=== PATIENT | female | born 1995 | race Caucasian/White ===

== ENCOUNTER 2017-06-09 07:10 | Inpatient (IN) | payer OTHER ==
[~2017-06-09 07:10] MED LIST: Dexamethasone 4 MG/ML 5 ML MDV IVPUSH ONE; Ketorolac 30 MG/ML SDV IVPUSH ONE; Lactated Ringers 1,000 ML IV ONE; Midazolam 1 MG/ML 2 ML SDV IV ONE; Morphine PF 10 MG/10 ML SDV IV ONE; Ondansetron 4 MG/2 ML SDV IVPUSH ONE; Oxytocin 10 Units/1 ML SDV IV ONE; Propofol 200 MG/20 ML SDV IV ONE; ceFAZolin 1 GM Vial IV ONE; diphenhydrAMINE 50 MG/ML SDV IV ONE; fentaNYL 100 MCG/2 ML SDV IV ONE
[2017-06-09] MEDS: Lactated Ringers 1,000 ML IV SCH ×2 (08:05→19:59)
--- NOTE | 2017-06-09 08:27 | PCM.SN ---
- Free Text/Narrative Note: Subjective-this is a 21-year-old 40+ weeks here for induction. Group B negative. Ultrasound done 2 weeks ago shows vertex. Objective- heart tones are reactive with a heart rate of 154. Cervix-3/80%/-2 Assessment-postdates here for induction group B negative. [id number] fluids. Anticipate vaginal delivery.
[2017-06-09] MEDS ORDERED: Oxytocin/Normal Saline 10 UNIT/1,000 ML BAG IV SCH (11:45)
--- NOTE | 2017-06-09 12:34 | PCM.SN ---
- Free Text/Narrative Note: Subjective-Patient feeling contractions. Pitocin was delayed secondary to staffing issues with another delivery. Objective- heart tones are reactive. Cervix is 4/80/-2 Assessment is induction postdates group B negative Plan-Pitocin. Patient was intrathecal or epidural that'll be fine. Vaginal delivery anticipated.
[2017-06-09] MEDS: Acetaminophen 325 MG Tab PO PRN (16:01)
--- NOTE | 2017-06-09 17:16 | PCM.SN ---
- Free Text/Narrative Note: Subjective-patient yolanda and feeling the contractions. She is more comfortable. Objective- heart tones reactive. Cervix-5/90/+1 Assessment induction primipara group B negative Plan vaginal delivery
[2017-06-09] MEDS ORDERED: Calcium Carbonate 750 MG Tab.Chew PO PRN (17:55)
[2017-06-09] MEDS ORDERED: fentaNYL 100 MCG/2 ML SDV EPIDUR ONE (18:13)
[2017-06-09] MEDS ORDERED: fentaNYL 300 MCG in Ropivacaine 200 ML EPIDUR ONE (18:13)
[2017-06-09] MEDS ORDERED: ePHEDrine 50 MG/ML SDV IVPUSH ONE (18:15)
[2017-06-09] MEDS ORDERED: Naloxone 0.4 MG/ML SDV IVPUSH PRN ×3 (18:19→20:33)
[2017-06-09] MEDS ORDERED: Nalbuphine 10 MG/1 ML Vial IVPUSH ONE (19:49)
[2017-06-09] MEDS ORDERED: diphenhydrAMINE 50 MG/ML SDV IVPUSH PRN (20:33)
[2017-06-09] MEDS ORDERED: ePHEDrine 50 MG/ML SDV IVPUSH PRN (20:33)
[2017-06-09] MEDS ORDERED: Promethazine 25 MG/ML SDV IV PRN (20:33)
[2017-06-09] MEDS ORDERED: Naloxone 0.4 MG in Sodium Chloride 0.9% 100 ML IV PRN (20:33)
[2017-06-09] MEDS ORDERED: hydrOXYzine HCl 50 MG/ML SDV IM PRN ×2 (20:33)
[2017-06-09] MEDS ORDERED: Ondansetron 4 MG/2 ML SDV IVPUSH PRN (20:37)
[2017-06-10] MEDS ORDERED: Citric Acid/Sodium Citrate Solution 30 ML Cup PO ONE (00:47)
--- NOTE | 2017-06-10 01:23 | PCM.HP ---
H&P History of Present Illness - General Date of Service: 06/10/17 Admit Problem/Dx: Admission Diagnosis/Problem Admission Diagnosis/Problem Source of Information: Patient, Old Records History Limitations: Reports: No Limitations - History of Present Illness Initial Comments - Free Text/Narative: 21 yo admitted for induction of labor by Dr Tello. She is 40w2d today. Induction by Pit was attempted,but she has not progressed past 6 cm dilatation and any attempt to increase pitocin has resulted in a non reassuring heart rate. 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: Musculoskeletal History: Reports: Other (See Below) Neurological History: Reports: Migraines Psychiatric History: Reports: Anxiety Endocrine/Metabolic History: Reports: None Hematologic History: Reports: None Immunologic History: Reports: None Oncologic (Cancer) History: Reports: None Dermatologic History: Reports: None - Infectious Disease History Infectious Disease History: Reports: None - Past Surgical History Head Surgeries/Procedures: Reports: None Musculoskeletal Surgical History: Reports: Arthroscopic Knee Other Musculoskeletal Surgeries/Procedures:: left knee scoped x 2 Oncologic Surgical History: Reports: None Social & Family History - Family History Family Medical History: Noncontributory - Tobacco Use Smoking Status *Q: Never Smoker Second Hand Smoke Exposure: No - Caffeine Use Caffeine Use: Reports: None - Recreational Drug Use Recreational Drug Use: No H&P Review of Systems - Review of Systems: Review Of Systems: ROS reveals no pertinent complaints other than HPI. Exam - Exam Exam: See Below - Vital Signs Vital Signs: Last Vital Signs Temp 98.2 F 06/09/17 21:45 Pulse 77 06/09/17 23:30 Resp 18 06/09/17 20:00 BP 119/60 06/09/17 23:30 Pulse Ox 100 06/09/17 12:00 Weight: 110.223 kg - Exam General: Alert, Oriented, 4 HEENT: PERRLA, Hearing Intact, Mucosa Moist & Heeia, Nares Patent, Normal Nasal Septum, Posterior Pharynx Clear, Conjunctiva Clear, EOMI, EACs Clear, TMs Clear Neck: Supple, Trachea Midline, 2 Lungs: Clear to Auscultation, Normal Respiratory Effort Cardiovascular: Regular Rate, Regular Rhythm GI/Abdominal Exam: Normal Bowel Sounds, Soft, Non-Tender, No Organomegaly, No Distention, No Abnormal Bruit, No Mass, Pelvis Stable (Female) Exam: Normal External Exam, Normal Speculum Exam, Normal Bimanual Exam Rectal (Female) Exam: Normal Exam, Normal Rectal Tone Back Exam: Normal Inspection, Full Range of Motion, NT Extremities: Normal Inspection, Normal Range of Motion, Non-Tender, No Pedal Edema, Normal Capillary Refill Skin: Warm, Dry, Intact Neurological: Cranial Nerves Intact, Reflexes Equal Bilateral Neuro Extensive - Mental Status: Alert, Oriented x3, Normal Mood/Affect, Normal Cognition Neuro Extensive - Motor, Sensory, Reflexes: CN II-XII Intact, Normal Gait, Normal Reflexes Psychiatric: Alert, Normal Affect, Normal Mood *Q Meaningful Use (ADM) - VTE *Q VTE Criteria *Q: - Stroke *Q Stroke Criteria *Q: - AMI *Q AMI Criteria *Q: - Problem List (1) Failed induction of labor SNOMED Code(s): 90198982 ICD Code: O61.9 - FAILED INDUCTION OF LABOR, UNSPECIFIED Status: Acute Current Visit: Yes Qualifiers: Failed induction of labor type: medical Qualified Code(s): O61.0 - Failed medical induction of labor (2) Failure to progress in first stage of labor SNOMED Code(s): 395471156 ICD Code: [id number] - Status: Acute Current Visit: Yes (3) Non-reassuring cardiotocographic tracing SNOMED Code(s): 036119630 ICD Code: O76 - ABNLT IN HEART RATE AND RHYTHM COMP LABOR AND DELIVERY Status: Acute Current Visit: Yes Problem List Initiated/Reviewed/Updated: Yes Orders Last 24hrs: Active Orders 24 hr Category Date Time Status Admission Status [Patient Status] [ADT] Routine ADT 06/09/17 07:00 Active Admission Status [Patient Status] [ADT] Routine ADT 06/09/17 08:20 Active Communication Order [RC] ASDIRECTED Care 06/09/17 11:33 Active Communication Order [RC] ASDIRECTED Care 06/09/17 11:33 Active Communication Order [RC] ASDIRECTED Care 06/09/17 11:33 Active Communication Order [RC] ASDIRECTED Care 06/09/17 11:33 Active Notify Provider [RC] PRN Care 06/09/17 11:33 Active Notify Provider [RC] STAT Care 06/09/17 11:33 Active Urinary Catheter Assessment [RC] ASDIRECTED Care 06/09/17 23:04 Active Urinary Catheter Insertion [Insert Urinary Catheter] [ Care 06/09/17 23:15 Ordered OM.PC] Q24H Vital Signs [RC] PER UNIT ROUTINE Care 06/09/17 11:33 Active CBC WITH AUTO DIFF [HEME] Routine Lab 06/10/17 00:58 Received TYPE AND SCREEN [BBK] Routine Lab 06/10/17 00:58 Received Acetaminophen [Tylenol] Med 06/09/17 15:36 Active 650 mg PO Q4H PRN Calcium Carbonate [Tums Extra Strength] Med 06/09/17 17:55 Active 750 mg PO Q2H PRN Lactated Ringers [Ringers, Lactated] 1,000 ml Med 06/09/17 08:00 Active IV ASDIRECTED Naloxone [Narcan] Med 06/09/17 20:33 Active 0.1 mg IVPUSH ASDIRECTED PRN Naloxone [Narcan] Med 06/09/17 18:21 Active 0.1 mg IVPUSH ONETIME PRN Naloxone [Narcan] 0.4 mg Med 06/09/17 20:33 Active Sodium Chloride 0.9% [Normal Saline] 100 ml IV ASDIRECTED Ondansetron [Zofran] Med 06/09/17 20:37 Active 4 mg IVPUSH Q6H PRN Oxytocin/Normal Saline [Pitocin in NS 10 UNITS/1,000 ML Med 06/09/17 11:45 Active ] 10 unit in 1,000 ml IV TITRATE Promethazine [Phenergan] Med 06/09/17 20:33 Active 6.25 - 12.5 mg IV Q4H PRN Scopolamine [Transderm-Scop] Med 06/10/17 01:18 Once 1.5 mg TOP ONETIME ONE diphenhydrAMINE [Benadryl] Med 06/09/17 20:33 Active 25 mg IVPUSH ASDIRECTED PRN ePHEDrine [ePHEDrine Sulfate] Med 06/09/17 20:33 Active 5 mg IVPUSH ASDIRECTED PRN hydrOXYzine HCl [Vistaril] Med 06/09/17 20:33 Active 0 mg IM Q4H PRN hydrOXYzine HCl [Vistaril] Med 06/09/17 20:33 Active 25 - 50 mg IM Q6H PRN Code Status [Resuscitation Status] Routine Resus Stat 06/09/17 16:49 Ordered Medication Orders Acetaminophen (Tylenol) 650 mg PO Q4H PRN PRN Reason: Headache Last Admin: 06/09/17 16:01 Dose: 650 mg Calcium Carbonate/Glycine (Tums Extra Strength) 750 mg PO Q2H PRN PRN Reason: Indigestion Diphenhydramine HCl (Benadryl) 25 mg IVPUSH ASDIRECTED PRN PRN Reason: PRURITUS Ephedrine Sulfate (Ephedrine Sulfate) 5 mg IVPUSH ASDIRECTED PRN PRN Reason: HYPOTENSION Hydroxyzine HCl (Vistaril) 25 - 50 mg IM Q6H PRN PRN Reason: PRURITIS Hydroxyzine HCl (Vistaril) 0 mg IM Q4H PRN PRN Reason: N/V Lactated Ringer's (Ringers, Lactated) 1,000 mls @ 125 mls/hr IV ASDIRECTED SANTINO Last Admin: 06/09/17 19:59 Dose: 125 mls/hr Infusion: 06/09/17 16:05 Dose: 125 mls/hr Admin: 06/09/17 08:05 Dose: 125 mls/hr Oxytocin/Sodium Chloride (Pitocin In Ns 10 Units/1,000 Ml) 10 unit in 1,000 mls @ 12 mls/hr IV TITRATE SANTINO; 2 MUNITS/MIN PRN Reason: Protocol Last Titration: 06/10/17 00:03 Dose: 0 munits/min, 0 mls/hr Titration: 06/09/17 23:45 Dose: 5 munits/min, 30 mls/hr Titration: 06/09/17 23:02 Dose: 12 munits/min, 72 mls/hr Titration: 06/09/17 21:45 Dose: 10 munits/min, 60 mls/hr Titration: 06/09/17 20:34 Dose: 8 munits/min, 48 mls/hr Titration: 06/09/17 19:45 Dose: 6 munits/min, 36 mls/hr Titration: 06/09/17 13:25 Dose: 4 munits/min, 24 mls/hr Admin: 06/09/17 11:59 Dose: 2 munits/min, 12 mls/hr Naloxone HCl 0.4 mg/ Sodium (Chloride) 101 mls @ 25 mls/hr IV ASDIRECTED PRN PRN Reason: PER ORDER OF ANESTHESIA Naloxone HCl (Narcan) 0.1 mg IVPUSH ONETIME PRN PRN Reason: Respiratory Depression Naloxone HCl (Narcan) 0.1 mg IVPUSH ASDIRECTED PRN PRN Reason: RESPIRATORY STATUS Ondansetron HCl (Zofran) 4 mg IVPUSH Q6H PRN PRN Reason: N/V Promethazine HCl (Phenergan) 6.25 - 12.5 mg IV Q4H PRN PRN Reason: NAUSEA AND VOMITING Scopolamine (Transderm-Scop) 1.5 mg TOP ONETIME ONE Stop: 06/10/17 01:19 Assessment/Plan Comment:: I have discussed the risks and benefits of a Cesarian Delivery. The patient and significant other are in agreement.
[2017-06-10] MEDS: Lactated Ringers 1,000 ML IV SCH ×4 (01:27→16:04)
[2017-06-10] MEDS ORDERED: Scopolamine 1.5 MG Transdermal Patch TOP ONE (01:30)
[2017-06-10] MEDS ORDERED: diphenhydrAMINE 50 MG/ML SDV IVPUSH PRN (02:48)
[2017-06-10] MEDS ORDERED: Naloxone 0.4 MG/ML SDV IVPUSH PRN (02:48)
[2017-06-10] MEDS ORDERED: ePHEDrine 50 MG/ML SDV IVPUSH PRN (02:48)
[2017-06-10] MEDS ORDERED: Morphine 2 MG/ML Syringe IVPUSH PRN (03:04)
[2017-06-10] MEDS ORDERED: Morphine 2 MG/ML Syringe IV PRN (03:10)
[2017-06-10] MEDS ORDERED: Nalbuphine 10 MG/1 ML Vial IV PRN (03:10)
[2017-06-10] MEDS: Acetaminophen 325 MG Tab PO PRN (10:18)
[2017-06-10] MEDS ORDERED: Ketorolac 15 MG/ML SDV IVPUSH PRN (13:33)
[2017-06-10] MEDS: Acetaminophen/HYDROcodone 325-5 MG Tab PO PRN (20:02)
[2017-06-10] MEDS: Ibuprofen 600 MG Tab PO SCH (20:03)
[2017-06-11] MEDS: Ibuprofen 600 MG Tab PO SCH ×4 (03:25→21:04)
[2017-06-11] MEDS: Acetaminophen/HYDROcodone 325-5 MG Tab PO PRN ×2 (06:01→11:25)
--- NOTE | 2017-06-11 07:38 | OR ---
DATE OF OPERATION: 06/10/2017 SURGEON: Jimmy Terrell MD OPERATION: Primary section, lower uterine segment. PREOPERATIVE DIAGNOSES: 1. Failure to progress. 2. Non-reassuring heart tones. POSTOPERATIVE DIAGNOSES: 1. Failure to progress. 2. Non-reassuring heart tones. ENGLISH FACULTY MEMBER: Marcos Tello MD. ANESTHESIA: Regional. DESCRIPTION OF PROCEDURE: The patient accepted the risks and benefits as explained to her by myself. She was taken to the OR, where she was draped and prepped in the usual sterile fashion, lying in a supine position with a leftward tilt. Anesthesia was found to be adequate. Thereafter, a Pfannenstiel incision was fashioned in the lower abdomen, and carried through to the underlying fascia. The fascia was scored in the middle and laterally extended with Emerson scissors using Sonny clamps. The muscles were tented and the fascia was bluntly dissected from it. The muscles were in the midline and the peritoneum was entered sharply. A bladder blade was inserted, and a reflection of the visceral peritoneum was made in the lower uterine segment. Using a scalpel, an incision was made in the lower uterine segment and carried laterally by pulling in the cephalad-caudad fashion. The baby's head was delivered and the baby wiped. The whole baby was delivered and the cord was cut, clamped, and given to the waiting nurses. After obtaining cord blood, the uterus was extracted by traction, and the uterus was exteriorized and cleaned of all debris and clots The uterus incision was closed by 1-0 Vicryl in two layers, and needed three stitches of [id number] to achieve adequate hemostasis. The uterus was then returned to the maternal abdomen, and the gutters were cleaned of debris and clots. I did not close the peritoneum. The rectal fascia was closed by a 0 Vicryl, and thereafter, the subcutaneous fascia and skin were closed by 3-0 running stitch of Vicryl. COMPLICATIONS: There were no complications. ESTIMATED BLOOD LOSS: About 500 mL. POST-PROCEDURE RESULT: The product of the delivery is a live male with score of 8 and 9. DISPOSITION: The patient will be admitted to the post anesthesia unit for monitoring and then to the Labor and Delivery floor. /[id number] DULCE/ALYSON
--- NOTE | 2017-06-11 09:42 | PCM.PNPP ---
- General Info Date of Service: 06/11/17 Functional Status: Reports: Pain Controlled - Review of Systems General: Reports: No Symptoms HEENT: Reports: No Symptoms Pulmonary: Reports: No Symptoms Cardiovascular: Reports: No Symptoms Gastrointestinal: Reports: No Symptoms Genitourinary: Reports: No Symptoms Musculoskeletal: Reports: No Symptoms Skin: Reports: No Symptoms Neurological: Reports: No Symptoms Psychiatric: Reports: No Symptoms - General Info Date of Service: 06/11/17 - Patient Data Vital Signs - Most Recent: Last Vital Signs Temp 97.7 F 06/11/17 07:45 Pulse 88 06/11/17 07:45 Resp 18 06/11/17 07:45 BP 137/82 06/11/17 07:45 Pulse Ox 100 06/11/17 07:45 Weight - Most Recent: 110.223 kg I&O - Last 24 Hours: Intake & Output 06/10/17 06/11/17 06/11/17 22:59 06:59 14:59 Intake Total 3275 Output Total 1600 Balance 1675 Med Orders - Current: Current Medications Acetaminophen (Tylenol) 650 mg PO Q4H PRN PRN Reason: Headache Last Admin: 06/10/17 10:18 Dose: 650 mg Hydrocodone Bitart/Acetaminophen ([place] 325-5 Mg) 1 tab PO Q4H PRN PRN Reason: Breakthrough Pain Last Admin: 06/11/17 06:01 Dose: 1 tab Calcium Carbonate/Glycine (Tums Extra Strength) 750 mg PO Q2H PRN PRN Reason: Indigestion Diphenhydramine HCl (Benadryl) 25 mg IVPUSH ASDIRECTED PRN PRN Reason: PRURITUS Diphenhydramine HCl (Benadryl) 25 mg IVPUSH Q6H PRN PRN Reason: Itching or Nausea Hydroxyzine HCl (Vistaril) 0 mg IM Q4H PRN PRN Reason: N/V Naloxone HCl 0.4 mg/ Sodium (Chloride) 101 mls @ 25 mls/hr IV ASDIRECTED PRN PRN Reason: PER ORDER OF ANESTHESIA Lactated Ringer's (Ringers, Lactated) 1,000 mls @ 250 mls/hr IV ASDIRECTED SANTINO Last Admin: 06/10/17 16:04 Dose: 250 mls/hr Ibuprofen (Motrin) 600 mg PO Q6H SANTINO Last Admin: 06/11/17 08:25 Dose: 600 mg Morphine Sulfate (Morphine) 2 mg IV Q1H PRN PRN Reason: BREAKTHROUGH PAIN Last Admin: 06/10/17 17:36 Dose: 2 mg Nalbuphine HCl (Nubain) 10 mg IV Q1H PRN PRN Reason: PRURITUS Naloxone HCl (Narcan) 0.1 mg IVPUSH ASDIRECTED PRN PRN Reason: RESPIRATORY STATUS Ondansetron HCl (Zofran) 4 mg IVPUSH Q6H PRN PRN Reason: N/V Promethazine HCl (Phenergan) 6.25 - 12.5 mg IV Q4H PRN PRN Reason: NAUSEA AND VOMITING Discontinued Medications Citric Acid/Sodium Citrate (Bicitra Solution) 30 ml PO ONETIME ONE Stop: 06/10/17 00:48 Last Admin: 06/10/17 01:23 Dose: 30 ml Ephedrine Sulfate (Ephedrine Sulfate) 10 mg IVPUSH ONETIME ONE Stop: 06/09/17 18:16 Ephedrine Sulfate (Ephedrine Sulfate) 5 mg IVPUSH ASDIRECTED PRN PRN Reason: HYPOTENSION Ephedrine Sulfate (Ephedrine Sulfate) 5 mg IVPUSH ASDIRECTED PRN PRN Reason: Other Hydroxyzine HCl (Vistaril) 25 - 50 mg IM Q6H PRN PRN Reason: PRURITIS Lactated Ringer's (Ringers, Lactated) 1,000 mls @ 125 mls/hr IV ASDIRECTED SANTINO Stop: 06/10/17 03:00 Last Admin: 06/10/17 01:27 Dose: 125 mls/hr Oxytocin/Sodium Chloride (Pitocin In Ns 10 Units/1,000 Ml) 10 unit in 1,000 mls @ 12 mls/hr IV TITRATE SANTINO; 2 MUNITS/MIN PRN Reason: Protocol Stop: 06/10/17 00:03 Last Titration: 06/10/17 00:03 Dose: 0 munits/min, 0 mls/hr Ketorolac Tromethamine (Toradol) 15 mg IVPUSH Q6H PRN PRN Reason: BREAKTHROUGH PAIN Last Admin: 06/10/17 15:07 Dose: 15 mg Morphine Sulfate (Morphine) 2 mg IVPUSH Q3M PRN PRN Reason: Abdominal Pain Nalbuphine HCl (Nubain) 10 mg IVPUSH ONETIME ONE Stop: 06/09/17 19:50 Last Admin: 06/09/17 20:00 Dose: 10 mg Naloxone HCl (Narcan) 0.1 mg IVPUSH ONETIME PRN PRN Reason: Respiratory Depression Naloxone HCl (Narcan) 0.1 mg IVPUSH ONETIME PRN PRN Reason: Respiratory Depression Scopolamine (Transderm-Scop) 1.5 mg TOP ONETIME ONE Stop: 06/10/17 01:31 Last Admin: 06/10/17 01:23 Dose: 1.5 mg - Infant Interaction Infant Disposition, : [place] in Room with Family Support Person: Mother, Significant Other - Recovery Exam Fundal Tone: Firm Fundal Level: At Umbilicus Fundal Placement: Midline Lochia Amount: Moderate Lochia Color: Rubra/Red Perineum Description: Intact, Minimal Bruising/Swelling Episiotomy/Laceration: Approximated Bladder Status: Nonpalpable Urinary Elimination: Indwelling Catheter - Exam General: Alert, Oriented HEENT: Pupils Equal Neck: Supple Lungs: Clear to Auscultation, Normal Respiratory Effort Cardiovascular: Regular Rate, Regular Rhythm GI/Abdominal Exam: Normal Bowel Sounds, Soft, Non-Tender, No Organomegaly, No Distention, No Abnormal Bruit, No Mass, Pelvis Stable Extremities: Normal Inspection, Normal Range of Motion, Non-Tender, No Pedal Edema, Normal Capillary Refill Skin: Warm, Dry, Intact Wound/Incisions: Healing Well Neurological: No New Focal Deficit Psy/Mental Status: Alert, Normal Affect, Normal Mood - Problem List & Annotations (1) Failed induction of labor SNOMED Code(s): 18550381 Code(s): O61.9 - FAILED INDUCTION OF LABOR, UNSPECIFIED Status: Acute Current Visit: Yes Qualifiers: Failed induction of labor type: medical Qualified Code(s): O61.0 - Failed medical induction of labor (2) Failure to progress in first stage of labor SNOMED Code(s): 185373646 Code(s): [id number] - Status: Acute Current Visit: Yes (3) Non-reassuring cardiotocographic tracing SNOMED Code(s): 043336733 Code(s): O76 - ABNLT IN HEART RATE AND RHYTHM COMP LABOR AND DELIVERY Status: Acute Current Visit: Yes - Problem List Review Problem List Initiated/Reviewed/Updated: Yes - My Orders Last 24 Hours: My Active Orders 06/10/17 19:30 Acetaminophen/HYDROcodone [[place] 325-5 MG] 1 tab PO Q4H PRN 06/10/17 21:00 Ibuprofen [Motrin] 600 mg PO Q6H - Plan Plan:: Treat constipation. Encourage ambulation
[2017-06-11] MEDS ORDERED: Polyethylene Glycol 3350 Powder 17 GM Packet PO PRN (13:53)
[2017-06-11] MEDS: SUMAtriptan 50 MG Tab PO PRN ×2 (14:53→18:48)
[2017-06-12] MEDS: Ibuprofen 600 MG Tab PO SCH ×2 (02:53→08:40)
[2017-06-12] MEDS: SUMAtriptan 50 MG Tab PO PRN (04:05)
--- NOTE | 2017-06-12 08:29 | PCM.PNPP ---
- General Info Date of Service: 06/12/17 Subjective Update: Patient complains of headaches. There is characterized as migraine headaches. Mild to moderate.She had them previous to , stopped propranolol and Imitrex which was helping. She's wondering if she can go back on same dose of medications Functional Status: Reports: Pain Controlled, New Symptoms (migraine headaches.) - Review of Systems General: Reports: No Symptoms HEENT: Reports: Headaches Pulmonary: Reports: No Symptoms Cardiovascular: Reports: No Symptoms Gastrointestinal: Reports: No Symptoms Genitourinary: Reports: No Symptoms - General Info Date of Service: 06/12/17 - Patient Data Vital Signs - Most Recent: Last Vital Signs Temp 98.3 F 06/12/17 00:00 Pulse 82 06/12/17 08:13 Resp 18 06/12/17 00:00 BP 126/79 06/12/17 00:00 Pulse Ox 100 06/12/17 00:00 Weight - Most Recent: 110.223 kg Med Orders - Current: Current Medications Acetaminophen (Tylenol) 650 mg PO Q4H PRN PRN Reason: Headache Last Admin: 06/10/17 10:18 Dose: 650 mg Hydrocodone Bitart/Acetaminophen ([place] 325-5 Mg) 1 tab PO Q4H PRN PRN Reason: Breakthrough Pain Last Admin: 06/11/17 11:25 Dose: 1 tab Calcium Carbonate/Glycine (Tums Extra Strength) 750 mg PO Q2H PRN PRN Reason: Indigestion Diphenhydramine HCl (Benadryl) 25 mg IVPUSH ASDIRECTED PRN PRN Reason: PRURITUS Diphenhydramine HCl (Benadryl) 25 mg IVPUSH Q6H PRN PRN Reason: Itching or Nausea Hydroxyzine HCl (Vistaril) 0 mg IM Q4H PRN PRN Reason: N/V Naloxone HCl 0.4 mg/ Sodium (Chloride) 101 mls @ 25 mls/hr IV ASDIRECTED PRN PRN Reason: PER ORDER OF ANESTHESIA Lactated Ringer's (Ringers, Lactated) 1,000 mls @ 250 mls/hr IV ASDIRECTED SANTINO Last Admin: 06/10/17 16:04 Dose: 250 mls/hr Ibuprofen (Motrin) 600 mg PO Q6H SANTINO Last Admin: 06/12/17 02:53 Dose: 600 mg Morphine Sulfate (Morphine) 2 mg IV Q1H PRN PRN Reason: BREAKTHROUGH PAIN Last Admin: 06/10/17 17:36 Dose: 2 mg Nalbuphine HCl (Nubain) 10 mg IV Q1H PRN PRN Reason: PRURITUS Naloxone HCl (Narcan) 0.1 mg IVPUSH ASDIRECTED PRN PRN Reason: RESPIRATORY STATUS Ondansetron HCl (Zofran) 4 mg IVPUSH Q6H PRN PRN Reason: N/V Polyethylene Glycol (Miralax) 17 gm PO DAILY PRN PRN Reason: Constipation Last Admin: 06/11/17 15:12 Dose: 17 gm Promethazine HCl (Phenergan) 6.25 - 12.5 mg IV Q4H PRN PRN Reason: NAUSEA AND VOMITING Sumatriptan Succinate (Imitrex) 100 mg PO ASDIRECTED PRN PRN Reason: Headache Last Admin: 06/12/17 04:05 Dose: 100 mg Discontinued Medications Citric Acid/Sodium Citrate (Bicitra Solution) 30 ml PO ONETIME ONE Stop: 06/10/17 00:48 Last Admin: 06/10/17 01:23 Dose: 30 ml Ephedrine Sulfate (Ephedrine Sulfate) 10 mg IVPUSH ONETIME ONE Stop: 06/09/17 18:16 Ephedrine Sulfate (Ephedrine Sulfate) 5 mg IVPUSH ASDIRECTED PRN PRN Reason: HYPOTENSION Ephedrine Sulfate (Ephedrine Sulfate) 5 mg IVPUSH ASDIRECTED PRN PRN Reason: Other Hydroxyzine HCl (Vistaril) 25 - 50 mg IM Q6H PRN PRN Reason: PRURITIS Lactated Ringer's (Ringers, Lactated) 1,000 mls @ 125 mls/hr IV ASDIRECTED SANTINO Stop: 06/10/17 03:00 Last Admin: 06/10/17 01:27 Dose: 125 mls/hr Oxytocin/Sodium Chloride (Pitocin In Ns 10 Units/1,000 Ml) 10 unit in 1,000 mls @ 12 mls/hr IV TITRATE SANTINO; 2 MUNITS/MIN PRN Reason: Protocol Stop: 06/10/17 00:03 Last Titration: 06/10/17 00:03 Dose: 0 munits/min, 0 mls/hr Ketorolac Tromethamine (Toradol) 15 mg IVPUSH Q6H PRN PRN Reason: BREAKTHROUGH PAIN Last Admin: 06/10/17 15:07 Dose: 15 mg Morphine Sulfate (Morphine) 2 mg IVPUSH Q3M PRN PRN Reason: Abdominal Pain Nalbuphine HCl (Nubain) 10 mg IVPUSH ONETIME ONE Stop: 06/09/17 19:50 Last Admin: 06/09/17 20:00 Dose: 10 mg Naloxone HCl (Narcan) 0.1 mg IVPUSH ONETIME PRN PRN Reason: Respiratory Depression Naloxone HCl (Narcan) 0.1 mg IVPUSH ONETIME PRN PRN Reason: Respiratory Depression Scopolamine (Transderm-Scop) 1.5 mg TOP ONETIME ONE Stop: 06/10/17 01:31 Last Admin: 06/10/17 01:23 Dose: 1.5 mg - Infant Interaction Disposition, : [place] in Room with Family Support Person: Mother, Significant Other - Recovery Exam Fundal Tone: Firm Fundal Level: At Umbilicus Fundal Placement: Midline Lochia Amount: Small Lochia Color: Rubra/Red Perineum Description: Intact, Minimal Bruising/Swelling Episiotomy/Laceration: None Bladder Status: Voiding Urinary Elimination: Indwelling Catheter - Exam General: Alert, Oriented HEENT: Pupils Equal Neck: Supple Lungs: Clear to Auscultation, Normal Respiratory Effort Cardiovascular: Regular Rate, Regular Rhythm GI/Abdominal Exam: Normal Bowel Sounds, Soft, Non-Tender, No Organomegaly, No Distention, No Abnormal Bruit, No Mass, Pelvis Stable Extremities: Normal Inspection, Normal Range of Motion, Non-Tender, No Pedal Edema, Normal Capillary Refill Skin: Warm, Dry, Intact Wound/Incisions: Healing Well Neurological: No New Focal Deficit Psy/Mental Status: Alert, Normal Affect, Normal Mood - Problem List & Annotations (1) Failed induction of labor SNOMED Code(s): 20081800 Code(s): O61.9 - FAILED INDUCTION OF LABOR, UNSPECIFIED Status: Acute Current Visit: Yes Qualifiers: Failed induction of labor type: medical Qualified Code(s): O61.0 - Failed medical induction of labor (2) Failure to progress in first stage of labor SNOMED Code(s): 570937317 Code(s): SRZ5594 - Status: Acute Current Visit: Yes (3) Non-reassuring cardiotocographic tracing SNOMED Code(s): 700965178 Code(s): O76 - ABNLT IN HEART RATE AND RHYTHM COMP LABOR AND DELIVERY Status: Acute Current Visit: Yes (4) Migraine SNOMED Code(s): 67279204 Code(s): G43.909 - MIGRAINE, UNSP, NOT INTRACTABLE, WITHOUT STATUS MIGRAINOSUS Status: Acute Current Visit: Yes (5) Intends to breastfeed SNOMED Code(s): 307424204 Code(s): YQN3923 - Status: Acute Current Visit: Yes - Problem List Review Problem List Initiated/Reviewed/Updated: Yes - My Orders Last 24 Hours: My Active Orders 06/11/17 13:53 Polyethylene Glycol 3350 [MiraLAX] 17 gm PO DAILY PRN - Plan Plan:: Treat constipation. Encourage ambulation. DC home today. I would not recommend Imitrex of propranolol during breast-feeding unless he Needed. However She Can Discuss This with Her Primary Care Physician in 6 Weeks.
[2017-06-12] MEDS ORDERED: FLU Vacc QS 2017-18 (36mos UP)/PF 60 MCG/0.5 ML Syringe IM ONE (09:01)
[2017-06-12 09:23] VITALS: BP 146/82
--- NOTE | 2017-06-12 10:13 | DISCH ---
DISCHARGE DATE: 06/12/2017 REASON FOR ADMISSION: Induction of labor. DISCHARGE DIAGNOSES: 1. Failed induction. 2. Primary section. 3. Migraine headaches. 4. Constipation. CONSULTATIONS: None. BRIEF HISTORY AND HOSPITAL COURSE: This is a 21-year-old female, admitted by Dr. Tello for induction of labor. She reached 6 cm and was unable to progress and the heart tones were nonreassuring. We performed a and live infant was born. She did well postoperatively. The patient did complain of some headaches and constipation. She has a history of migraine headaches. She characterized these headaches as such. I discharged her home on hydrocodone 1 tablet every 6 hours p.r.n., only 15 tablets, vitamins. I discontinued propranolol and Imitrex until she sees her primary physician in 6 weeks. May use Tylenol for headaches as well. I spent more than 35 minutes in the discharge of the patient. /[id number] DULCE/ALYSON
== END 2017-06-12 11:55 | disposition home or self-care (01) | DRG 766 ==
LOC: UNDOADMOB 07:10 → FB.OB 07:10 → OBSVTOIN 08:20 → INTOOBSV 08:20 → OBSVTOIN 06-10 02:07 → FB.OB 06-10 02:07 → UNDODISIN 06-12 11:55
PROVIDERS: ADMIT Family Medicine; ATTEND Family Medicine
PROC: 10D00Z1 Extraction of Products of Conception, Low, Open Approach (ICD-10-PCS; principal; 2017-06-10)
PROC: 3E033VJ Introduction of Other Hormone into Peripheral Vein, Percutaneous Approach (ICD-10-PCS; 2017-06-10)
PROC: 00HU03Z Insertion of Infusion Device into Spinal Canal, Open Approach (ICD-10-PCS; 2017-06-10)
DX: O61.0 Failed medical induction of labor (principal); O76 Abnormality in fetal heart rate and rhythm complicating labor and delivery; O48.0 Post-term pregnancy; O63.0 Prolonged first stage (of labor); Z3A.40 40 weeks gestation of pregnancy; Z37.0 Single live birth; G43.909 Migraine, unspecified, not intractable, without status migrainosus; K59.00 Constipation, unspecified; O26.893 Other specified pregnancy related conditions, third trimester; Z88.1 Allergy status to other antibiotic agents
CPT/HCPCS: 36415; 51701; 51702; 85025; 86850; 86900; 86901; 88307; 90686; 94150; A9270-GY; G0008; J0690; J1100; J1200; J1885; J2250; J2270; J2300; J2405; J2590; J2704; J2795; J3010; J7120

== ENCOUNTER 2017-06-16 21:20 | Emergency (ER) | payer OTHER ==
[2017-06-16 22:13] VITALS: BP 127/73
--- NOTE | 2017-06-17 13:51 | ER ---
DATE SEEN: 06/16/2017 TIME SEEN: The patient was seen at 2120 hours. IDENTIFICATION: This 21-year-old mother just delivered, 06/10/2017, by C- section, a baby. The Pfannenstiel incision is bleeding this evening and that is the reason why she came to the hospital. CHIEF COMPLAINT: Pfannenstiel incision bleeding. HISTORY OF PRESENT ILLNESS: The patient does not feel lightheaded, has not lost extensive amount of blood. Denies abdominal pain. She has some suprapubic incisional discomfort, not extensive. She has been without a fever. No coughing, chest pain, shortness of breath, lightheadedness, nausea, vomiting, diarrhea, change in her bowels, constipation, back pain, lower extremity pain, or leg pain. ALLERGIES: Allergic to Amoxil. MEDICATIONS: She is taking Larimer 5/325 mg She was told by the nurse not to take Larimer and breast-feed. The patient's last Larimer was yesterday. She takes Larimer because she has migraines. At present, she has mild headache and is considered migraine. REVIEW OF SYSTEMS: Otherwise, negative except for noted above. PHYSICAL EXAMINATION: VITAL SIGNS: Blood pressure 127/73, heart rate 80, respirations 18, oxygen saturation 100%, and temperature is 37.1 degrees centigrade. CONSTITUTIONAL: The patient is overweight, moderate obesity, in mild distress. HEENT: Without abnormality. Mucosa is moist. NECK: No thyromegaly. LUNGS: Clear without rales, rhonchi, or wheezes. HEART: S1, S2. No tachycardia. No murmur noted. ABDOMEN: Soft, increased abdominal girth. Pfannenstiel incision is healing, looks very clean. The edges are clearly juxtaposition and midportion of the incision there is small area with small amount of blood. There is blood soiling of the Steri-Strips that have been placed over the incision but they are still adherent. There is no erythema. Mild discomfort noted. Mild dark blood exiting the mid-incision. LEGS: Negative. ASSESSMENT AND PLAN: 1. Incisional bleed. Capillary bleed. Reassured. This was stopped with pressure. 2. Obesity. 3. Status post section, fifth postop day. The patient without complications. 4. Migraine presently. 5. . She was told not to breast-feed, to pump and dump her milk. 6. Bleed is minor. With pressure, it will stabilize and not require further intervention. 7. Wound is healing nicely, status post section, is doing well. 8. The patient is not frightened by the bleed, but would just like more information. 9. The up-to-date information in regard to relative dose notes that as long as the ratio is not greater than 10, the patient can breast feed. The information for hydrocodone as it crossed the breast is 0.9%. This is not a 10% ratio, is not a relative dose greater than 10, and the up-to-date states that she could take up to 40 mg a day and still would not be problematic for the baby. Consequently, the mother has been informed that she can take medicines ideally no more than 4 to 6 tablets a day. She notes that she probably would only take it occasionally for her migraine. Special dressing was placed on the abdomen, put gentle pressure and reinforced redoubling of the gauze with ABD over it, to put pressure on it, and she is advised to use a tight fitting elastic of the underwear to hold the dressing in place. She will have to change the dressing several times a day. The bleeding will occur, but it will gradually progressively decrease. The blood noted tonight this evening was not fresh blood, but is older blood, is dark blood, so it is venous in character and bleeding is not extensive. The patient was advised that probably this will resolve easily. She will follow up with a doctor in a week or earlier if there any problems. /[id number] ALKA/ALYSON FLOWER
== END 2017-06-16 22:10 | disposition home or self-care (01) ==
LOC: FB.ED 21:20
DX: O90.89 Other complications of the puerperium, not elsewhere classified (principal); O99.215 Obesity complicating the puerperium; E66.9 Obesity, unspecified; Z88.1 Allergy status to other antibiotic agents
CPT/HCPCS: 99283